=== PATIENT | female | born 1995 ===

== ENCOUNTER 2020-03-12 09:06 | Day surgery (SDC) | payer OTHER ==
[~2020-03-12] VITALS: Ht 154.9 cm; Wt 64.0 kg
[2020-03-12 09:38] VITALS: BP 116/84; PULSE 91; TEMP 97.4
[2020-03-12] MEDS ORDERED: PRENATAL TABLET PO (09:49)
[2020-03-12] MEDS ORDERED: PROTONIX 40MG T40 MG PO (09:49)
[2020-03-12] MEDS ORDERED: BENADRYL25 M2 PO (09:49)
[2020-03-12] MEDS ORDERED: MELATONIN5 M1 PO (09:50)
[2020-03-12] MEDS ORDERED: TYLENOL 500MG500 MG PO (09:50)
[2020-03-12] MEDS ORDERED: MAALOX ADVANCE148 ML PO (09:51)
--- NOTE | 2020-03-12 09:53 | NUR ---
TO RM AT 0915- CALL LIGHT IN REACH FRIEND WILL GIVE PATIENT RIDE HOME
[2020-03-12 10:40] VITALS: BP 101/63; PULSE 83; TEMP 97.6
--- NOTE | 2020-03-12 10:40 | NUR ---
TO RM 6 PER CART FROM ENDOSCOPY . ALERT ORIENTED X3, AMBLUTED TO REACLINER. RECEIVED APPLE JUICE. DENIES PAIN OR DISCOMFORT AT THIS TIME.
[2020-03-12 10:55] VITALS: BP 100/69; PULSE 85
--- NOTE | 2020-03-12 10:55 | NUR ---
RECEIVED VANILLA PUDDING AND ANOTHER GLASS OF APPLE JUICE.
[2020-03-12 11:10] VITALS: BP 100/78; PULSE 79
--- NOTE | 2020-03-12 11:10 | NUR ---
ATE 100% AND TOLERATED WELL.
--- NOTE | 2020-03-12 11:15 | NUR ---
DR MUNOZ INTO TALK WITH PATIENT
--- NOTE | 2020-03-12 11:25 | NUR ---
RECEIVED DISCHARGE INSTRUCTIONS AND VERBALIZED UNDERSTANDING. DISCONTINUED IV AND INT- CATHETER INTACT.
--- NOTE | 2020-03-12 11:30 | NUR ---
DISCHARGED PER WC BY NURSING STAFF TO PRIVATE CAR IN CARE OF FRIEND KRISTIN.
== END 2020-03-12 11:48 | disposition home or self-care (01) ==
LOC: SDCO 09:06
DX: K21.9 Gastro-esophageal reflux disease without esophagitis (principal); Z88.0 Allergy status to penicillin; Z79.899 Other long term (current) drug therapy
CPT/HCPCS: J2250; J3010; J7030